=== PATIENT | male | born 1950 | race Caucasian/White ===

== ENCOUNTER → 2018-09-07 | Outpatient (CLI) | payer MEDICARE ==
[~2018-09-07] MED LIST: ASPIR 8181 MG PO; AZELASTINE137 MCG/0. NASAL; CEFDINIR300 MG PO; CENTRUM SILVER1 EAC2; CLARITIN10 MG PO; CYCLOBENZAPRINE10 MG PO; DUONEB 2.5-0.5 M3 ML INH; ELIQUIS5 MG PO; ETODOLAC 400 M400 M1 PO; FLONASE 0.05%50 MCG NASAL; FOLIC ACID 40400 MC1 PO; FOLIC ACID 40400 MCG PO; HYDROCODONE-AP1 EAC6 PO; HYDROCODONE-APA1 TA1 PO; HYZAAR 50-12.51 EACH PO; IBUPROFEN 800800 M1 PO; KEFLEX500 MG PO; KLOR-CON 10 ER10 MEQ PO; LASIX 40 MG TAB40 M2 PO; LEVAQUIN 500 M500 M2 PO; LEVOTHYROXINE0.2 M1 PO; LISINOPRIL; LOSARTAN-HCTZ1 EAC3 PO; MAXIMUM DAILY1 EACH PO; MEDROLDOSEPACK PO; MUCINEX TA600 MG/TA2 PO; NORCO 7.5-3251 EACH PO; PAROXETINE HCL20 MG PO; PEPCID20 MG PO; PERCOCET 5-3251 EACH PO; PERCOCET 7.5-31 EACH PO; PREDNISONE 10 M10 MG PO; PREDNISONE 20 M20 MG PO; PROAIR; PROAIR HFA8.5 GM INH; PROBIOTIC1 EAC1 PO; PROVENTIL; SINGULAIR 10 MG10 M1 PO; SYNTHROID175 MCG PO; TAPAZOLE10 MG PO; VENTOLIN HFA 1818 GM INH; XANAX 0.25 MG0.25 MG PO; ZANAFLEX4 MG PO; ZAROXOLYN 5MG TA5 MG PO
--- NOTE | 2018-09-07 16:43 | 2DMMODE ---
[place] [address] 2 D/M-MODE ECHOCARDIOGRAM Name: MAYI DEJESUS Room: [facility]#: [id number] Admission: 09/07/18 Attend Phys: Walker Bianchi, Discharge: Date of : 54 Date of Service: 09/07/18 1643 Report #: [id number] THIS REPORT FOR: //name// APPROVED REPORT Study performed: 09/07/2018 14:19:29 EXAM: Comprehensive 2D, Doppler, and color-flow Echocardiogram Patient Location: Out-Patient Status: routine BSA: 2.61 HR: 82 bpm BP: 144/53 mmHg Other Information Technically limited study due to body habitus. Indications Dyspnea 2D Dimensions IVSd: 11.78 (7-11mm) LVOT Diam: 20.24 (18-24mm) LVDd: 49.91 mm PWd: 10.81 (7-11mm) Ascending Ao: 36.04 (22-36mm) LVDs: 27.58 (25-40mm) Aortic Root: 36.55 mm Volumes Left Atrial Volume (Systole) LA ESV Index: 11.50 mL/m2 Aortic Valve AoV Peak Juan Pablo.: 1.49 m/s AO Peak Gr.: 8.89 mmHg LVOT Max P.95 mmHg AO Mean Gr.: 5.58 mmHg LVOT Mean P.45 mmHg LVOT Max V: 0.86 m/s AO V2 VTI: 33.41 cm LVOT Mean V: 0.55 m/s LETI (VTI): 1.87 cm2 LVOT V1 VTI: 19.37 cm Mitral Valve E/A Ratio: 0.91 MV Decel. Time: 165.76 ms MV E Max Juan Pablo.: 0.66 m/s MV PHT: 48.07 [place] [address] 2 D/M-MODE ECHOCARDIOGRAM Name: MAYI DEJESUS Room: [facility]#: [id number] Admission: 09/07/18 Attend Phys: Walker Bianchi, Discharge: Date of : 54 Date of Service: 09/07/18 1643 Report #: [id number] MVA (PHT): 4.58 cm2 TDI E/Lateral E': 6.60 E/Medial E': 7.33 Medial E' Juan Pablo.: 0.09 m/s Lateral E' Juan Pablo.: 0.10 m/s Pulmonary Valve PV Peak Juan Pablo.: 0.92 m/s PV Peak Gr.: 3.41 mmHg Left Ventricle The left ventricle is normal size. There is normal LV segmental wall motion. There is normal left ventricular wall thickness. Left ventricular systolic function is borderline. LVEF is 50-55%. Grade I - abnormal relaxation pattern. Right Ventricle The right ventricle is normal size. The right ventricular systolic function is normal. Atria The left atrium size is normal. The right atrium size is normal. Aortic Valve Mild aortic valve sclerosis. No aortic regurgitation is present. There is no aortic valvular stenosis. Mitral Valve The mitral valve is normal in structure. Mild mitral regurgitation. No evidence of mitral valve stenosis. Tricuspid Valve The tricuspid valve is normal in structure. There is no tricuspid valve regurgitation noted. Pulmonic Valve The pulmonary valve is normal in structure. There is no pulmonic valvular regurgitation. Great Vessels The aortic root is normal in size. IVC is normal in size and collapses >50% with inspiration. Pericardium There is no pericard[place] [address] 2 D/M-MODE ECHOCARDIOGRAM Name: MAYI DEJESUS [id number] Admission: 09/07/18 Attend Phys: Walker Bianchi, Discharge: Date of : 54 Date of Service: 09/07/18 1643 Report #: [id number] <Conclusion> The left ventricle is normal size. There is normal left ventricular wall thickness. Left ventricular systolic function is borderline. LVEF is 50-55%. Grade I - abnormal relaxation pattern. The right ventricle is normal size. The left atrium size is normal. Mild aortic valve sclerosis. No aortic regurgitation is present. There is no aortic valvular stenosis. The mitral valve is normal in structure. Mild mitral regurgitation. The tricuspid valve is normal in structure. IVC is normal in size and collapses >50% with inspiration. There is no pericardial effusion. There is normal LV segmental wall motion. <ELECTRONICALLY SIGNED> By: Jona Rodriguez MD, FACC 09/07/18 164 42 42 Jona Rodriguez MD, FACC /INF
== END ==
LOC: M.CRD 13:52
DX: I51.7 Cardiomegaly (principal); I35.8 Other nonrheumatic aortic valve disorders; I34.0 Nonrheumatic mitral (valve) insufficiency; J11.81 Influenza due to unidentified influenza virus with encephalopathy; E07.9 Disorder of thyroid, unspecified; J45.909 Unspecified asthma, uncomplicated; R06.09 Other forms of dyspnea; Z68.43 Body mass index [BMI] 50.0-59.9, adult

== ENCOUNTER 2018-12-25 08:50 | Inpatient (IN) | payer MEDICARE ==
[~2018-12-25] VITALS: Ht 152.4 cm; Wt 164.8 kg
[~2018-12-25 08:50] MED LIST changes: -FOLIC ACID 40400 MC1 PO; +FOLIC ACID20 MG PO
[2018-12-25 08:55] VITALS: BP 124/57
[2018-12-25] MEDS ORDERED: PROTONIX40 M2 PO (09:05)
[2018-12-25 09:26] LABS: ABSOLUTE BASOPHILS 0.1 thou/uL (0.0-0.2); ABSOLUTE EOSINOPHILS 0.2 thou/uL (0.0-0.7); ABSOLUTE LYMPHOCYTES 3.3 thou/uL (0.8-5.3); ABSOLUTE MONOCYTES 0.8 thou/uL (0.0-1.2); ABSOLUTE NEUTROPHILS 3.9 thou/uL (1.6-8.1); BASOPHILS 1.1 %; EOSINOPHILS 1.8 %; HEMATOCRIT 38.6 % (42.0-52.0); LYMPHOCYTES 40.2 %; MCH 31.3 pg (26.0-34.0); MCHC 33.6 g/dL (28.0-37.0); MCV 93.2 fL (80.0-100.0); MONOCYTES 9.6 %; MPV 7.3 fl. (7.2-11.1); NUCLEATED RBCS 0 /100WBC; PLATELET COUNT* 252 thou/uL (150-400); POLYS 47.3 %; RBC 4.15 mil/uL (4.50-6.00); RDW-CV 14.8 % (10.5-14.5); WBC 8.3 thou/uL (4.0-11.0)
[2018-12-25 09:31] LABS: ANION GAP 8 mmol/L (7-16); BUN 23 mg/dL (7-18); CHLORIDE 98 mmol/L (98-107); CO2 34 mmol/L (21-32); CREATININE 1.6 mg/dL (0.6-1.3); GLUCOSE 134 mg/dL (70-99); SODIUM 140 mmol/L (136-145)
[2018-12-25 09:42] LABS: ALKALINE PHOSPHATASE 70 U/L (46-116); LIPASE 345 U/L (73-393); NT-PRO BRAIN NAT PEPTIDE 62 pg/mL (<300); SGOT 16 U/L (15-37); SGPT 26 U/L (30-65); TOTAL BILIRUBIN 0.4 mg/dL (<0.1-1.0); TOTAL PROTEIN 7.1 g/dL (6.4-8.2)
[2018-12-25 09:44] LABS: POTASSIUM 2.6 mmol/L (3.5-5.1); TROPONIN-I LEVEL <0.06 ng/mL (<0.06)
[2018-12-25 11:29] VITALS: BP 109/67
[2018-12-25 12:49] VITALS: BP 164/84
--- NOTE | 2018-12-25 17:45 | NUR ---
PATIENT PROGRESSING TOWARDS GOALS. DENIED CHEST PAIN THROUGHOUT REMAINDER OF SHIFT. REPORTED 4/10 HEADACHE POST NITROGLYCERIN ADMINISTRATION. REPORETED RELIEF WITH PO TYLENOL. IV LASIX GIVEN. POTASSIUM REPLACED. PATIENT UP AD SAVAGE IN ROOM, 2L NC FOR CARDIAC SYMPTOMS, ONETIME SALINE WITH 40K BAG INFUSING. BROUGHT DPOA, PLACED IN CHART. PATIENT HOPEFUL FOR QUICK DISCHARGE, DENIES FURTHER NEEDS FROM NURSING AT THIS TIME.
[2018-12-25 19:50] VITALS: BP 142/74
[2018-12-26] VITALS (7 sets, daily range): BP systolic 112–149; BP diastolic 59–76
--- NOTE | 2018-12-26 01:56 | NUR ---
RECIEVED REPORT AND ASSUMED CARE AT 1900. NEWS AGENT IN PLACE. VITAL SIGNS AT STABLE. PT HAS SOME BACK PAIN AND PRN MEDS GIVEN ORDERED. ASSESSMENT COMPLETED, DISCUSSED PLAN OF CARE, PT UNDERSTANDS. BED LOCKED AND CALL LIGHT WITHIN REACH. FALL PRECAUTIONS IN PLACE. PT IS UP ADLIB. HOURLY ROUNDING DONE AND ALL NEEDS MET. NURSING WILL CONTINUE TO MONITOR.
[2018-12-26 05:37] LABS: CALCIUM 8.9 mg/dL (8.5-10.1); CREATININE 1.3 mg/dL (0.6-1.3)
--- NOTE | 2018-12-26 07:30 | NUR ---
ASSUMED CARE OF PT ASSESSED AND DOCUMENTED. PT IS ON CARDIAC MONITER TRACING SR HR 66. PT IS A&O WITH NO C/O PAIN. VSS WNL. PT IS AFEBRILE AND IN ROOM AIR. CALL LIGHT IS IN REACH. WM.
--- NOTE | 2018-12-26 12:17 | EKG ---
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 : 1950 Requested By: Cyril Baker Order Number: [id number] MD: Walker Champion Measurements Intervals [place] Rate: 60 P: 33 WV: 161 QRS: 21 QRSD: 112 T: 24 QT: 509 QTc: 509 Interpretive Statements Sinus rhythm Atrial premature complexes Borderline intraventricular conduction delay Low voltage, precordial leads Abnormal R-wave progression, early transition Prolonged QT interval Compared to ECG 09/02/2017 05:26:51 Low QRS voltage now present Electronically Signed On 12-26-2018 12:17:12 RECYCLING SORTER by Walker Champion [email or web address] <ELECTRONICALLY SIGNED> By: Walker Champion MD, [facility] 12/26/18 1217 0855 0855 Walker Champion MD, [facility] /EPI
--- NOTE | 2018-12-26 16:57 | NUR ---
PT HAS RESTED IN HIS ROOM THIS SHIFT WITH FAMILY AT BESIDE. PER DR FAUST HE IS PROBABLE TO D/C HOME TOMORROW. EDUCATION GIVEN ON DEMAND. HOURLY ROUNDING CONTINUES.
--- NOTE | 2018-12-27 02:00 | NUR ---
RECIEVED REPORT AND ASSUMED CARE AT 1900. [facility] MONITOR IN PLACE. VITAL SIGNS STABLE. PT UP ADLIB TO THE BATHROOM. PT DENIES ANY PAIN AT THIS TIME. ASSESSMENT COMPLETED, DISCUSSED PLAN OF CARE, PT UNDERSTANDS. BED LOCKED AND CALL LIGHT WITHIN REACH. FALL PRECAUTIONS IN PLACE. HOURLY ROUNDING DONE AND ALL NEEDS MET. NURSING WILL CONTINUE TO MONITOR.
[2018-12-27 03:44] VITALS: BP 162/80
[2018-12-27 05:14] LABS: CALCIUM 8.7 mg/dL (8.5-10.1); CREATININE 1.3 mg/dL (0.6-1.3); POTASSIUM 3.1 mmol/L (3.5-5.1)
[2018-12-27 08:00] VITALS: BP 145/75
[2018-12-27 12:00] VITALS: BP 166/80
--- NOTE | 2018-12-27 12:15 | NUR ---
MET WITH PT TO DISCUSS HOME SITUATION/DC PLANNING. PT LIVE WITH . HE USES CPAP AND CANE. HASN'T HAD HH OR BEEN TO SNF. HE IS INDEPENDENT AND ACTIVE. DENIES DC NEEDS AND HOPES TO GO HOME TODAY.
--- NOTE | 2018-12-27 12:36 | NUR ---
RECEIVED REPROT FROM [facility] NURSE. ASSUMED CARE OF PT AROUND 0730. PT A&0X4. VSS. SPOOL CARRIER IN PLACE TRACING SR. AM ASSESSMENT AND VITALS COMPLETED CHARTED. FAMILY AT BEDSIDE. PT REPORTS BACK PAIN AND HEADACHE THAT WAS MANAGED WITH PO PAIN MEDICATION. PT TOLERATING DIET. MEDS PER EMAR. 1 TO 2+ PITTING EDEMA NOTED TO BLE. EDUCATED TO KEEP LEGS ELEVATED. PT HOPING TO DC THIS SHIFT. PT CURRENTLY SITTING UP IN BEDSIDE CHAIR. LOW FALL RISK PRECAUTIONS IN PLACE. CALL LIGHT IS WITHIN REACH. WILL CONTINUE TO MONITOR.
[2018-12-27 16:00] VITALS: BP 115/70
[2018-12-27 16:23] VITALS: BP 115/70
--- NOTE | 2018-12-27 18:30 | NUR ---
DISCHARGE ORDERS RECEIVED. DISCHARGE COMPLETED DOCUMENTED. DISCHARGE SUMMARY GONE OVER WITH PT. PT COMMUNCIATES UNDERSTANDING. SCRIPT GIVEN. IV AND FLAT OPTICAL ELEMENT MAKER REMOVED. PT AWARE OF F/U APPOINTMENTS WITH PCP AND CARDIOLOGY. ECHO COMPLETED PRIOR TO DC. SEE RESULTS. ALL BELONGINGS GATHERED AND SENT HOME WITH THE PT. PT LEFT UNIT IN WC WITH NURSING STAFF. PT LEFT FACILITY IN CAR WITH SPOUSE.
--- NOTE | 2018-12-28 08:41 | 2DMMODE ---
[place] [address] 2 D/M-MODE ECHOCARDIOGRAM Name: MAYI DEJESUS Room: [address] IN [place].#: [id number] Admission: 12/25/18 Attend Phys: Az Cifuentes Discharge: 12/27/18 Date of : 54 Date of Service: 12/28/18 0841 Report #: [id number] THIS REPORT FOR: //name// APPROVED REPORT Study performed: 12/27/2018 16:53:49 EXAM: Comprehensive 2D, Doppler, and color-flow Echocardiogram Patient Location: Bedside BSA: 2.42 HR: 78 bpm BP: 115/70 mmHg Other Information Study Quality: Technically Difficult Technically limited study due to body habitus. Indications Congestive Heart Failure 2D Dimensions IVSd: 15.74 (7-11mm) LVOT Diam: 21.73 (18-24mm) LVDd: 54.23 mm PWd: 12.91 (7-11mm) Ascending Ao: 35.84 (22-36mm) LVDs: 34.06 (25-40mm) Aortic Root: 29.34 mm Volumes Left Atrial Volume (Systole) LA ESV Index: 20.80 mL/m2 Aortic Valve AoV Peak Juan Pablo.: 1.23 m/s AO Peak Gr.: 6.10 mmHg LVOT Max P.60 mmHg AO Mean Gr.: 3.61 mmHg LVOT Mean P.04 mmHg LVOT Max V: 1.18 m/s AO V2 VTI: 24.75 cm LVOT Mean V: 0.82 m/s LETI (VTI): 3.48 cm2 LVOT V1 VTI: 23.22 cm Mitral Valve E/A Ratio: 0.92 MV Decel. Time: 250.70 ms MV E Max Juan Pablo.: 0.67 m/s MV PHT: 72.70 ms MVA (PHT): 3.03 cm2 [place] [address] 2 D/M-MODE ECHOCARDIOGRAM Name: MAYI DEJESUS Room: [address]#: [id number] Admission: 12/25/18 Attend Phys: Az Cifuentes Discharge: 12/27/18 Date of : 54 Date of Service: 12/28/18 0841 Report #: [id number] TDI E/Lateral E': 6.70 E/Medial E': 9.57 Medial E' Juan Pablo.: 0.07 m/s Lateral E' Juan Pablo.: 0.10 m/s Pulmonary Valve PV Peak Juan Pablo.: 1.10 m/s PV Peak Gr.: 4.84 mmHg Left Ventricle The left ventricle is normal size. Regional wall motion is not well visualized but grossly normal. Mild concentric left ventricular hypertrophy. Left ventricular systolic function is normal. The left ventricular ejection fraction is within the normal range. LVEF is 55-60%. Grade I - abnormal relaxation pattern. Right Ventricle The right ventricle is normal size. The right ventricular systolic function is normal. Atria Left atrium is mildly dilated. Interatrial septum not well visualized. The right atrium size is normal. Aortic Valve The Aortic valve is sclerotic. No aortic regurgitation is present. There is no aortic valvular stenosis. Mitral Valve The mitral valve is normal in structure. There is no mitral valve regurgitation noted. No evidence of mitral valve stenosis. Tricuspid Valve The tricuspid valve is normal in structure. There is no tricuspid valve regurgitation noted. Pulmonic Valve The pulmonary valve is normal in structure. There is no pulmonic valvular regurgitation[place] [address] 2 D/M-MODE ECHOCARDIOGRAM Name: MAYI DEJESUS Room: [address]#: [id number] Admission: 12/25/18 Attend Phys: Az Cifuentes Discharge: 12/27/18 Date of : 54 Date of Service: 12/28/18 0841 Report #: [id number] Great Vessels The aortic root is normal in size. IVC is not visualized. Pericardium There is no pericardial effusion. <Conclusion> LVEF is 55-60%. Regional wall motion is not well visualized but grossly normal. Left atrium is mildly dilated. The Aortic valve is sclerotic. There is no aortic valvular stenosis. No aortic regurgitation is present. No evidence of mitral valve stenosis. There is no mitral valve regurgitation noted. Grade I - abnormal relaxation pattern. <ELECTRONICALLY SIGNED> By: Donnie Pena MD, FACC 12/28/18840 0 0 Donnie Pena MD, FACC /INF
--- NOTE | 2018-12-29 12:35 | CON ---
[address] [address] CONSULTATION Name: MAYI DEJESUS Room: [address] IN M.R.#: [id number] Admission: 12/25/18 Attend Phys: Luis F Martinez Discharge: 12/27/18 Date of : 54 Report #: [id number] THIS REPORT FOR: //name// CC: DR SHANNAN Cifuentes DATE OF SERVICE: 12/25/2018 HISTORY OF PRESENT ILLNESS: The patient is a 68-year-old white male who I was asked to see in the hospital today after he complained of chest pain. The patient has had multiple hospitalizations here at [place]. I actually saw him in consultation in August when he complained of chest pain, shortness of breath. The patient does have a history of recurrent pulmonary embolus and has been chronically anticoagulated. He also has a history of morbid obesity, standing 5 feet 8 inches, weight 366 pounds. He is not very active because of his obesity, arthritis. Nuclear stress test in 2015 showed no ischemia. Echocardiogram in 2017 showed an ejection fraction of 60%. The patient states he was doing well until last night, he awakened with a pressure in his chest. He got up and denied the pain radiating to his arms. He has noticed some shortness of breath and no diaphoresis or nausea. He denied the pain being related to food and had no belch with the episode. He has had no recent bleeding. He does have a chronic cough and chest pain seemed to be worse if he took a deep breath. PAST MEDICAL HISTORY: Otherwise significant for knee arthroscopy, thyroid surgery, hypertension, sleep apnea. MEDICATIONS: Consist of Eliquis, aspirin, Lasix, Synthroid, Hyzaar, Zaroxolyn as needed, Paxil, Zanaflex. ALLERGIES: HE HAS INTOLERANCE TO DOXYCYCLINE. FAMILY HISTORY: His father had heart attack. SOCIAL HISTORY: He is . He and his live in [place]. No smoking or alcohol abuse. Used to work in a [employer] center. REVIEW OF SYSTEMS: He has a history of sleep apnea, uses CPAP. No history of stroke, no history of peptic ulcer disease, liver disease, kidney disease, cancer, psychiatric illness. He does wear glasses. PHYSICAL EXAMINATION: GENERAL: Revealed a large middle-aged male. No acute distress. VITAL SIGNS: He had a blood pressure of 120/60, pulse 60. He is afebrile. HEENT: He is anicteric. Conjunctivae pink. [place] [address] CONSULTATION Name: MAYI DEJESUS Tyler Room: [address]#: [id number] Admission: 12/25/18 Attend Phys: Luis F Martinez Discharge: 12/27/18 Date of : 54 Report #: [id number] NECK: Veins were difficult to assess due to obesity. CHEST: Clear to auscultation. CARDIOVASCULAR: Regular rate and rhythm. ABDOMEN: Obese. EXTREMITIES: Had trace edema. SKIN: Cool and dry. NEUROLOGIC: Nonfocal. RADIOLOGICAL DATA: His ECG on admission showed a sinus rhythm. There was no significant ST or T-wave change noted. There was early transition. LABORATORY DATA: Sodium 140, BUN 23, creatinine 1.6, potassium is only 2.6, glucose 151. His troponin was 0.06. His white blood cell count was 8.3, hemoglobin 13. He had a chest x-ray in the Emergency Room today that showed cardiomegaly, otherwise clear lung keith. IMPRESSION AND RECOMMENDATIONS: 1. Chest pain. No evidence of acute myocardial infarction. Previous stress test showed no ischemia. In light of his morbid obese, I would not recommend stress test or cardiac catheterization at this time. 2. Diastolic heart failure. Recommend Lasix. 3. Hypokalemia. I would replace. 4. Hypertension. The patient has been on diuretic and ARB. 5. Sleep apnea. The patient uses BiPAP. 6. History of pulmonary embolus. The patient has been chronically anticoagulated. His INR today has not been drawn yet. <ELECTRONICALLY SIGNED> By: Walker Champion MD, FACC 12/29/18 1235 1219 1523David Shaheed Champion MD, FAC /nt
== END 2018-12-27 18:15 | disposition home or self-care (01) | DRG 291 ==
LOC: M.ERS 08:50 → M.2W 10:00 → M.TBA-ER 10:00 → M.2W 11:34
PROVIDERS: Emergency Medicine Emergency Medical Services; Internal Medicine Cardiovascular Disease; ADMIT Internal Medicine
DX: I13.0 Hypertensive heart and chronic kidney disease with heart failure and stage 1 through stage 4 chronic kidney disease, or unspecified chronic kidney disease (principal); J18.9 Pneumonia, unspecified organism; I50.33 Acute on chronic diastolic (congestive) heart failure; Z68.45 Body mass index [BMI] 70 or greater, adult; E66.01 Morbid (severe) obesity due to excess calories; J44.9 Chronic obstructive pulmonary disease, unspecified; E87.6 Hypokalemia; E78.5 Hyperlipidemia, unspecified; M19.90 Unspecified osteoarthritis, unspecified site; E11.22 Type 2 diabetes mellitus with diabetic chronic kidney disease; F32.9 Major depressive disorder, single episode, unspecified; R07.89 Other chest pain; E03.9 Hypothyroidism, unspecified; G47.33 Obstructive sleep apnea (adult) (pediatric); N18.2 Chronic kidney disease, stage 2 (mild); I87.8 Other specified disorders of veins; Z88.1 Allergy status to other antibiotic agents; Z79.01 Long term (current) use of anticoagulants; Z86.711 Personal history of pulmonary embolism

== ENCOUNTER → 2018-12-31 | Outpatient (CLI) | payer MEDICARE ==
[~2018-12-31] MED LIST changes: +PROTONIX40 M2 PO
[2018-12-31 11:14] LABS: CALCIUM 10.1 mg/dL (8.5-10.1); CREATININE 1.3 mg/dL (0.6-1.3); POTASSIUM 3.1 mmol/L (3.5-5.1)
== END ==
LOC: M.LAB 10:37
PROVIDERS: Registered Nurse
DX: I11.0 Hypertensive heart disease with heart failure (principal); I50.32 Chronic diastolic (congestive) heart failure; E66.01 Morbid (severe) obesity due to excess calories

== ENCOUNTER → 2019-01-31 | Outpatient (CLI) | payer MEDICARE ==
[2019-01-31 15:03] LABS: CREATININE 1.2 mg/dL (0.6-1.3); POTASSIUM 3.1 mmol/L (3.5-5.1)
== END ==
LOC: M.LAB 14:08
PROVIDERS: Registered Nurse
DX: I50.32 Chronic diastolic (congestive) heart failure (principal)

== ENCOUNTER 2019-10-08 07:48 | Emergency (ER) | payer MEDICARE ==
[~2019-10-08] VITALS: Ht 172.7 cm; Wt 158.8 kg
[2019-10-08 09:30] VITALS: BP 141/75
== END 2019-10-08 09:31 | disposition home or self-care (01) ==
LOC: M.ERS 07:48
DX: S01.01XA Laceration without foreign body of scalp, initial encounter (principal); E03.9 Hypothyroidism, unspecified; M19.90 Unspecified osteoarthritis, unspecified site; J44.9 Chronic obstructive pulmonary disease, unspecified; I13.0 Hypertensive heart and chronic kidney disease with heart failure and stage 1 through stage 4 chronic kidney disease, or unspecified chronic kidney disease; N18.3 Chronic kidney disease, stage 3 (moderate); I50.32 Chronic diastolic (congestive) heart failure; G47.33 Obstructive sleep apnea (adult) (pediatric); F32.9 Major depressive disorder, single episode, unspecified; E66.01 Morbid (severe) obesity due to excess calories; Z68.43 Body mass index [BMI] 50.0-59.9, adult; Z88.1 Allergy status to other antibiotic agents; Z86.711 Personal history of pulmonary embolism; W18.39XA Other fall on same level, initial encounter; Y93.89 Activity, other specified; Y92.89 Other specified places as the place of occurrence of the external cause; Y99.8 Other external cause status

== ENCOUNTER 2019-11-24 21:20 | Emergency (ER) | payer MEDICARE ==
[~2019-11-24] VITALS: Ht 170.2 cm; Wt 165.6 kg
[2019-11-24 22:09] LABS: ABSOLUTE BASOPHILS 0.1 thou/uL (0.0-0.2); ABSOLUTE EOSINOPHILS 0.4 thou/uL (0.0-0.7); ABSOLUTE NEUTROPHILS 6.4 thou/uL (1.6-8.1); EOSINOPHILS 3.6 %; HEMATOCRIT 41.3 % (42.0-52.0); HEMOGLOBIN 14.1 gm/dL (14.0-18.0); LYMPHOCYTES 27.5 %; MCHC 34.1 g/dL (28.0-37.0); MONOCYTES 9.5 %; MPV 7.4 fl. (7.2-11.1); NUCLEATED RBCS 0 /100WBC; PLATELET COUNT* 281 thou/uL (150-400); POLYS 58.4 %; RBC 4.53 mil/uL (4.50-6.00); RDW-CV 14.2 % (10.5-14.5)
[2019-11-24 22:20] LABS: CALCIUM 8.5 mg/dL (8.5-10.1); CREATININE 1.2 mg/dL (0.6-1.3); POTASSIUM 3.7 mmol/L (3.5-5.1)
[2019-11-24 22:28] LABS: ALBUMIN 3.4 g/dL (3.4-5.0); TOTAL BILIRUBIN 0.3 mg/dL (<0.1-1.0); TOTAL PROTEIN 7.1 g/dL (6.4-8.2)
[2019-11-24 22:34] LABS: APTT 21.7 Seconds (25.0-31.3); PROTIME 10.2 Seconds (9.20-11.50)
[2019-11-24] MEDS ORDERED: PREDNISONE 20 M20 M1 PO (23:22)
[2019-11-24] MEDS ORDERED: ZPAK PO (23:22)
[2019-11-24 23:27] VITALS: BP 155/62
--- NOTE | 2019-11-25 12:37 | EKG ---
[place] [address] ELECTROCARDIOGRAM REPORT Name: MAYI DEJESUS [id number] Admission: 11/24/19 Attend Phys: Discharge: 11/24/19 Date of : 54 Report #: [id number] THIS REPORT FOR: //name// [facility] ED Test Date: 2019-11-24 Test Time: 22:59:35 Pat Name: MAYI DEJESUS Department: Room: Gender: M Hypnotherapist: : 1950 Requested By: Willem Hoffmann Order Number: [id number] MD: Walker Champion Measurements Intervals [place] Rate: 71 P: 47 MS: 189 QRS: 2 QRSD: 120 T: 32 QT: 416 QTc: 453 Interpretive Statements Sinus rhythm IVCD, consider atypical RBBB Compared to ECG 12/25/2018 08:55:07 Atrial premature complex(es) no longer present Prolonged QT interval no longer present Electronically Signed On 11-25-2019 12:36:42 [employer] by Walker Champion [email or web address] <ELECTRONICALLY SIGNED> By: Walker Champion MD, [facility] 11/25/19 1236 2259 [id number] Walker Champion MD, [facility] /EPI
== END 2019-11-24 23:29 | disposition home or self-care (01) ==
LOC: M.ERS 21:20
PROVIDERS: Family Medicine
DX: R06.00 Dyspnea, unspecified (principal); I13.0 Hypertensive heart and chronic kidney disease with heart failure and stage 1 through stage 4 chronic kidney disease, or unspecified chronic kidney disease; N18.2 Chronic kidney disease, stage 2 (mild); I50.32 Chronic diastolic (congestive) heart failure; J44.9 Chronic obstructive pulmonary disease, unspecified; G47.33 Obstructive sleep apnea (adult) (pediatric); E03.9 Hypothyroidism, unspecified; E66.01 Morbid (severe) obesity due to excess calories; Z88.1 Allergy status to other antibiotic agents; Z86.711 Personal history of pulmonary embolism; Z68.43 Body mass index [BMI] 50.0-59.9, adult

== ENCOUNTER → 2019-12-08 | Outpatient (CLI) | payer MEDICARE ==
[~2019-12-08] MED LIST changes: +PREDNISONE 20 M20 M1 PO; +ZPAK PO
== END ==
LOC: M.CT 17:00
DX: R06.02 Shortness of breath (principal); K21.9 Gastro-esophageal reflux disease without esophagitis; M43.8X4 Other specified deforming dorsopathies, thoracic region; J45.909 Unspecified asthma, uncomplicated; I26.99 Other pulmonary embolism without acute cor pulmonale; I11.0 Hypertensive heart disease with heart failure; I50.32 Chronic diastolic (congestive) heart failure; I25.10 Atherosclerotic heart disease of native coronary artery without angina pectoris; M47.814 Spondylosis without myelopathy or radiculopathy, thoracic region

== ENCOUNTER → 2020-03-23 | Outpatient (CLI) | payer MEDICARE ==
[2020-03-23 10:15] LABS: CALCIUM 9.3 mg/dL (8.5-10.1); CREATININE 1.3 mg/dL (0.6-1.3)
[2020-03-23 10:30] LABS: POTASSIUM 2.8 mmol/L (3.5-5.1)
== END ==
LOC: M.LAB 09:03
PROVIDERS: Nurse Practitioner
DX: I10 Essential (primary) hypertension (principal); R60.1 Generalized edema

== ENCOUNTER → 2020-03-27 | Outpatient (CLI) | payer MEDICARE ==
[2020-03-27 15:45] LABS: ANION GAP 5 mmol/L (7-16); BUN 18 mg/dL (7-18); CALCIUM 8.3 mg/dL (8.5-10.1); CHLORIDE 105 mmol/L (98-107); CHOLESTEROL 161 mg/dL (<200); CO2 31 mmol/L (21-32); CREATININE 1.2 mg/dL (0.6-1.3); GLUCOSE 136 mg/dL (70-99); HDL CHOLESTEROL 39 mg/dL (>40); LDL CHOLESTEROL 92 mg/dL (<100); POTASSIUM 4.3 mmol/L (3.5-5.1); SODIUM 141 mmol/L (136-145); TC:HDL 4.1 Ratio (Not establshd); TRIGLYCERIDE 150 mg/dL (<150); VLDL 30 mg/dL (<40)
[2020-03-27 15:49] LABS: SERUM ASSESSMENT Clear
== END ==
LOC: M.LAB 14:31
PROVIDERS: Nurse Practitioner
DX: Z13.220 Encounter for screening for lipoid disorders (principal); I50.32 Chronic diastolic (congestive) heart failure

== ENCOUNTER → 2020-04-18 | Outpatient (CLI) | payer MEDICARE ==
[2020-04-18 13:40] LABS: CREATININE 1.3 mg/dL (0.6-1.3); POTASSIUM 3.7 mmol/L (3.5-5.1)
== END ==
LOC: M.LAB 12:56
PROVIDERS: Nurse Practitioner
DX: E87.6 Hypokalemia (principal)

== ENCOUNTER → 2020-05-24 | Outpatient (CLI) | payer MEDICARE ==
[2020-05-24 10:28] LABS: CALCIUM 8.6 mg/dL (8.5-10.1); CREATININE 1.4 mg/dL (0.6-1.3); POTASSIUM 3.5 mmol/L (3.5-5.1)
== END ==
LOC: M.LAB 09:45
PROVIDERS: ATTEND Nurse Practitioner
DX: E87.6 Hypokalemia (principal)

== ENCOUNTER → 2020-06-01 | Outpatient (CLI) | payer MEDICARE | LOC: M.RAD 11:50 | PROVIDERS: ATTEND Nurse Practitioner | DX: R06.02 Shortness of breath (principal); R07.89 Other chest pain ==

== ENCOUNTER 2020-06-27 07:58 | Emergency (ER) | payer MEDICARE ==
[~2020-06-27] VITALS: Ht 172.7 cm; Wt 158.8 kg
[2020-06-27 08:25] LABS: ABSOLUTE BASOPHILS 0.1 thou/uL (0.0-0.2); ABSOLUTE EOSINOPHILS 0.2 thou/uL (0.0-0.7); ABSOLUTE LYMPHOCYTES 3.3 thou/uL (0.8-5.3); ABSOLUTE NEUTROPHILS 5.9 thou/uL (1.6-8.1); HEMATOCRIT 40.6 % (42.0-52.0); HEMOGLOBIN 13.9 gm/dL (14.0-18.0); LYMPHOCYTES 31.3 %; MCHC 34.2 g/dL (28.0-37.0); MCV 90.6 fL (80.0-100.0); MONOCYTES 9.8 %; MPV 6.8 fl. (7.2-11.1); NUCLEATED RBCS 0 /100WBC; PLATELET COUNT* 254 thou/uL (150-400); POLYS 55.9 %; RBC 4.48 mil/uL (4.50-6.00); RDW-CV 14.1 % (10.5-14.5); WBC 10.5 thou/uL (4.0-11.0)
[2020-06-27 08:32] LABS: CALCIUM 8.7 mg/dL (8.5-10.1); CREATININE 1.6 mg/dL (0.6-1.3); POTASSIUM 3.4 mmol/L (3.5-5.1)
[2020-06-27 08:35] LABS: PROTIME 10.3 Seconds (9.20-11.50)
[2020-06-27 08:45] LABS: ALBUMIN 3.3 g/dL (3.4-5.0); CK-MB MASS 0.5 ng/mL (<0.5-3.6); MAGNESIUM 1.8 mg/dL (1.8-2.4); TOTAL BILIRUBIN 0.4 mg/dL (<0.1-1.0); TOTAL PROTEIN 7.5 g/dL (6.4-8.2)
[2020-06-27] MEDS ORDERED: ZPAK PO (09:05)
[2020-06-27] MEDS ORDERED: PREDNISONE 20 M20 M1 PO (09:05)
[2020-06-27 09:18] VITALS: BP 151/81
--- NOTE | 2020-06-27 13:49 | EKG ---
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 : 1950 Requested By: Willem Hoffmann Order Number: [id number] MD: Walker Champion Measurements Intervals [place] Rate: 84 P: 69 IN: 153 QRS: 21 QRSD: 108 T: 62 QT: 391 QTc: 463 Interpretive Statements Sinus rhythm Low voltage, precordial leads Abnormal R-wave progression, early transition Baseline wander in lead(s) II,III,aVF Compared to ECG 11/24/2019 22:59:35 Low QRS voltage now present Electronically Signed On 06-27-2020 13:49:43 CDT by Walker Champion [email or web address] <ELECTRONICALLY SIGNED> By: Walker Champion MD, [facility] 06/27/20 1349 08 08 Walker Champion MD, [facility] /EPI
== END 2020-06-27 09:19 | disposition home or self-care (01) ==
LOC: M.ERS 07:58
PROVIDERS: Family Medicine
DX: J44.9 Chronic obstructive pulmonary disease, unspecified (principal); Z20.828 Contact with and (suspected) exposure to other viral communicable diseases; G47.33 Obstructive sleep apnea (adult) (pediatric); E03.9 Hypothyroidism, unspecified; E66.01 Morbid (severe) obesity due to excess calories; I13.0 Hypertensive heart and chronic kidney disease with heart failure and stage 1 through stage 4 chronic kidney disease, or unspecified chronic kidney disease; N18.2 Chronic kidney disease, stage 2 (mild); I50.32 Chronic diastolic (congestive) heart failure; M19.90 Unspecified osteoarthritis, unspecified site; Z88.1 Allergy status to other antibiotic agents; Z68.43 Body mass index [BMI] 50.0-59.9, adult; Z86.711 Personal history of pulmonary embolism

== ENCOUNTER → 2020-07-24 | Outpatient (CLI) | payer MEDICARE ==
[2020-07-24 17:32] LABS: ALBUMIN 3.2 g/dL (3.4-5.0); CREATININE 1.3 mg/dL (0.6-1.3); DIRECT BILIRUBIN 0.1 mg/dL (<0.1-0.3); TOTAL BILIRUBIN 0.4 mg/dL (<0.1-1.0); TOTAL PROTEIN 6.5 g/dL (6.4-8.2)
== END ==
LOC: M.LAB 16:37
PROVIDERS: ATTEND Family Medicine
DX: I11.0 Hypertensive heart disease with heart failure (principal); I50.9 Heart failure, unspecified; R60.9 Edema, unspecified; M79.89 Other specified soft tissue disorders

== ENCOUNTER 2021-01-18 17:43 | Emergency (ER) | payer MEDICARE ==
[~2021-01-18] VITALS: Ht 170.2 cm; Wt 164.7 kg
[2021-01-18] MEDS ORDERED: FLONASE 0.05%50 MCG NARES (17:57)
[2021-01-18] MEDS ORDERED: ISOSORBIDE DINI30 MG PO (17:58)
[2021-01-18] MEDS ORDERED: METFORMIN HCL500 M3 PO (17:58)
[2021-01-18] MEDS ORDERED: METOLAZONE 5 MG5 MG PO (17:58)
[2021-01-18] MEDS ORDERED: VENTOLIN HFA 1818 GM INH (17:59)
[2021-01-18] MEDS ORDERED: SPIRONOLACTONE25 MG PO (17:59)
[2021-01-18] MEDS ORDERED: PROAIR HFA8.5 GM INH (17:59)
[2021-01-18] MEDS ORDERED: SYMBICORT160 MCG/4. INH (18:00)
[2021-01-18] MEDS ORDERED: TOPAMAX100 MG PO (18:00)
[2021-01-18] MEDS ORDERED: INTERMEZZO3.5 MG PO (18:01)
[2021-01-18] MEDS ORDERED: VITAMIN D31250 MC1 PO (18:01)
[2021-01-18] MEDS ORDERED: PERCOCET 5-3251 EACH PO (18:04)
[2021-01-18] MEDS ORDERED: KEFLEX500 M1 PO (18:04)
[2021-01-18] MEDS ORDERED: NYSTATIN15 G3 TOP (18:04)
[2021-01-18] MEDS ORDERED: BACTRIM DS TAB1 EACH PO (18:04)
[2021-01-18] MEDS ORDERED: NYSTATIN 100,0015 G1 TOP (18:21)
[2021-01-18 18:29] VITALS: BP 144/60
== END 2021-01-18 18:30 | disposition home or self-care (01) ==
LOC: M.ERS 17:43
DX: L03.311 Cellulitis of abdominal wall (principal); B37.2 Candidiasis of skin and nail; J44.9 Chronic obstructive pulmonary disease, unspecified; G47.33 Obstructive sleep apnea (adult) (pediatric); E03.9 Hypothyroidism, unspecified; M19.90 Unspecified osteoarthritis, unspecified site; I13.0 Hypertensive heart and chronic kidney disease with heart failure and stage 1 through stage 4 chronic kidney disease, or unspecified chronic kidney disease; N18.2 Chronic kidney disease, stage 2 (mild); I50.32 Chronic diastolic (congestive) heart failure; E66.01 Morbid (severe) obesity due to excess calories; Z68.43 Body mass index [BMI] 50.0-59.9, adult; Z88.1 Allergy status to other antibiotic agents; Z86.711 Personal history of pulmonary embolism

== ENCOUNTER → 2021-04-30 | Outpatient (CLI) | payer MEDICARE ==
[~2021-04-30] VITALS: Ht 170.2 cm; Wt 154.2 kg
[2021-04-30] VITALS (8 sets, daily range): BP systolic 119–132; BP diastolic 50–60
[~2021-04-30] MED LIST changes: +AZELASTINE137 MCG/0. INH; +BACTRIM DS TAB1 EACH PO; +CENTRUM SILVER1 EAC4 PO; +COZAAR100 MG PO; +FLONASE 0.05%50 MCG NARES; +INTERMEZZO3.5 MG PO; +ISOSORBIDE DINI30 MG PO; +KEFLEX500 M1 PO; +METFORMIN HCL500 M3 PO; +METOLAZONE 5 MG5 MG PO; +NYSTATIN 100,0015 G1 TOP; +NYSTATIN15 G3 TOP; +SPIRONOLACTONE25 MG PO; +SYMBICORT160 MCG/4. INH; +SYNTHROID200 MCG PO; +TOPAMAX100 MG PO; +TYLENOL325 MG PO; +VITAMIN D31250 MC1 PO; +ZOLOFT100 MG PO
[2021-04-30 11:57] LABS: HEMATOCRIT 38.9 % (42.0-52.0); HEMOGLOBIN 13.2 gm/dL (14.0-18.0); MCH 29.9 pg (26.0-34.0); MCV 88.1 fL (80.0-100.0); MPV 6.9 fl. (7.2-11.1); RBC 4.42 mil/uL (4.50-6.00); RDW-CV 15.3 % (10.5-14.5); WBC 10.2 thou/uL (4.0-11.0)
[2021-04-30 12:08] LABS: ANION GAP 6 mmol/L (7-16); BUN 27 mg/dL (7-18); CALCIUM 9.8 mg/dL (8.5-10.1); CHLORIDE 102 mmol/L (98-107); CO2 31 mmol/L (21-32); CREATININE 1.4 mg/dL (0.6-1.3); GLUCOSE 117 mg/dL (70-99); POTASSIUM 3.8 mmol/L (3.5-5.1); SODIUM 139 mmol/L (136-145)
[2021-04-30 12:11] LABS: APTT 22.6 Seconds (25.0-31.3); PROTIME 10.5 Seconds (9.20-11.50)
[2021-04-30 12:13] LABS: ALBUMIN 3.7 g/dL (3.4-5.0); ALKALINE PHOSPHATASE 73 U/L (46-116); CHOLESTEROL 195 mg/dL (<200); HDL CHOLESTEROL 42 mg/dL (>40); LDL CHOLESTEROL 118 mg/dL (<100); SGOT 13 U/L (15-37); SGPT 16 U/L (30-65); TC:HDL 4.6 Ratio (Not establshd); TOTAL BILIRUBIN 0.3 mg/dL (<0.1-1.0); TOTAL PROTEIN 7.6 g/dL (6.4-8.2); TRIGLYCERIDE 177 mg/dL (<150); VLDL 35 mg/dL (<40)
[2021-04-30 12:16] LABS: SERUM ASSESSMENT Clear
--- NOTE | 2021-04-30 14:10 | EKG ---
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: : 1950 Requested By: Aba Machado Order Number: [id number] Reading MD: Jona Rodriguez Measurements Intervals [place] Rate: 68 P: 64 [place]: 156 QRS: 21 QRSD: 118 T: 43 QT: 436 QTc: 464 Interpretive Statements Sinus rhythm Nonspecific intraventricular conduction delay Low voltage, precordial leads Baseline wander in lead(s) II Compared to ECG 06/27/2020 08:05:44 Intraventricular conduction delay now present Electronically Signed On 04-30-2021 14:10:13 CDT by Jona Rodriguez [email or web address] <ELECTRONICALLY SIGNED> By: Jona Rodriguez MD, [facility] 04/30/21 1410 1139 1139 Jona Rodriguez MD, [facility] /EPI
--- NOTE | 2021-05-05 14:40 | CARD ---
[address] [address] CARDIAC CATH REPORT Name: MAYI DEJESUS Room: [facility] PRANAV [place]#: [id number] Admission: 04/30/21 Attend Phys: Aba Machado MD Discharge: Date of : 54 Report #: [id number] THIS REPORT FOR: cc: Syed Clarke Adam J DO Liston, Michael J. MD [facility] ~ APPROVED REPORT Study performed: 04/30/2021 12:21:53 Patient Details Patient Status: Out-Patient Room #: The patient is a 70 year-old male Event Personnel Aba Machado Holistic Specialist, Gina Way RN Publications Editor, Yovana Eason RN Monitor, Elena Padilla RTR Scrub Procedures Performed Art Access - R radial artery Left Heart Cath w/or w/o Coronaries [id number] [facility] Hemostasis with Hemoband Admission/Lab Medications/Medications given during procedure Nitroglycerin IA 200 mcg, Verapamil IA 2.5 mg, Heparin IV 5000 units, Nitroglycerin IA 200 mcg, Verapamil IA 2.5 mg Procedure Narrative The patient was brought electively to the Cardiac Catheterization Laboratory and was prepped and draped in a sterile manner. The right wrist was infiltrated with 2% Lidocaine subcutaneous anesthesia. IV conscious sedation was used throughout procedure with appropriate monitoring and was performed in the presence of a registered nurse who was an independent trained observer other than the physician performing the procedure. A 6F Slender [place] sheath was inserted into the right radial artery. Coronary angiography was performed using coronary diagnostic catheters. The right coronary system was accessed and visualized with a 6F AR MOD catheter. The left coronary system was accessed and visualized with a 6F TIGER 4.0 catheter. The left ventricle was accessed and visualized with a 6F TIGER 4.0 catheter. Left ventricular/Aortic Valve gradient assessed . Closure device was deployed with a 6 Fr Radial Vasc band. The patient tolerated the procedure well and there were no complications associated with the procedure. [place] [address] CARDIAC CATH REPORT Name: OLEGMAYI PATEL Room: [facility]#: [id number] Admission: 04/30/21 Attend Phys: Aba Machado MD Discharge: Date of : 54 Report #: [id number] Intraoperative Conscious Sedation Sedation start time: 13:30 Case end Time: 14:01 Fentanyl 25.0 mcg Versed 1.0 mg Fluoro Time: 11.7 minutes Dose: DAP [id number] cGycm2 2099 mGy Contrast Type and Amount: Visipaque 160 ml Diagnostic Cath Left Main The left main coronary artery is normal and bifurcates into a circumflex and left anterior descending coronary artery. LAD The left anterior descending coronary artery has some mild calcification and 50% narrowing in the midportion. The remainder the vessel is free of significant disease. Diagonal 1 A large branch first diagonal branch is normal. Diagonal 2 A small second diagonal branch is normal. Diagonal 3 A small third diagonal branch is normal. Circumflex The circumflex coronary artery has minimal plaquing at the ostium. The remainder the vessel is free of significant disease. OM1 The obtuse marginal branch appears normal. Right Coronary The right coronary artery is a large and dominant vessel. There is moderate 30 to 40% plaquing noted proximally. The distal vessel appears free of significant disease. R PDA The right PDA exhibits minimal plaquing without hemodynamically significant stenoses. RPLV The right posterior lateral LV branch exhibits minimal plaquing without hemodynamically significant stenoses. Left Ventriculography Left Ventriculography was not performed. Hemodynamics The aortic pressure is 99/60 mmHg with a mean of 76 mmHg. The left ventricular pressure is 109/11 mmHg with a mean of mmHg. The left ventricular end diastolic pressure is 19 mmHg. Conclusion 1. Moderate nonocclusive coronary artery disease as outlined above. 2. Elevated left ventricular end-diastolic pressure consistent with acute [place] [address] CARDIAC CATH REPORT Name: MAYI DEJESUS Room: [facility]#: [id number] Admission: 04/30/21 Attend Phys: Aba Machado MD Discharge: Date of : 54 Report #: [id number] Recommendations 1. Continue medical management and aggressive risk factor modification. <ELECTRONICALLY SIGNED> By: Aba Machado MD, FACC 05/05/21 1440 1440 1440Michaemiroslava Machado MD, FAC /INF
== END | disposition home or self-care (01) ==
LOC: M.CL 09:40
PROVIDERS: ATTEND Internal Medicine Cardiovascular Disease
DX: R07.9 Chest pain, unspecified (principal); I25.10 Atherosclerotic heart disease of native coronary artery without angina pectoris; I13.0 Hypertensive heart and chronic kidney disease with heart failure and stage 1 through stage 4 chronic kidney disease, or unspecified chronic kidney disease; E11.22 Type 2 diabetes mellitus with diabetic chronic kidney disease; I50.32 Chronic diastolic (congestive) heart failure; J44.9 Chronic obstructive pulmonary disease, unspecified; I87.8 Other specified disorders of veins; E03.9 Hypothyroidism, unspecified; G47.33 Obstructive sleep apnea (adult) (pediatric); M19.90 Unspecified osteoarthritis, unspecified site; F32.9 Major depressive disorder, single episode, unspecified; Z98.890 Other specified postprocedural states; Z79.899 Other long term (current) drug therapy; Z86.711 Personal history of pulmonary embolism; Z79.01 Long term (current) use of anticoagulants